=== PATIENT | male | born 1995 | race Caucasian/White ===

== ENCOUNTER 2023-01-21 05:50 | Emergency (ER) | payer SELFPAY ==
[2023-01-21] MEDS ORDERED: DIPHTH,PERTUSS(ACELL),TET 0.5 ML DISP.SYRIN IM ONE ×2 (05:53→06:06)
[2023-01-21] MEDS ORDERED: LIDOCAINE HCL 1%, 10 MG/ML (20ML VIAL) ONE (05:59)
[2023-01-21 06:04] VITALS: BP 148/88; PULSE 107; RESP 20; TEMP 99.2; BMI 23.7
[2023-01-21] MEDS ORDERED: AMOX TR/POT CLAV 875MG/125MG TABLETS (FP) PO ONE (06:35)
[2023-01-21] MEDS ORDERED: AMOX TR/POT CLAV 875MG/125MG TABLETS (FP) ONE (06:37)
== END 2023-01-21 06:51 | disposition home or self-care (01) ==
LOC: FER 05:50
PROC: 0HQHXZZ Repair Right Upper Leg Skin, External Approach (ICD-10-PCS; principal; 2023-01-21)
PROC: 3E0234Z Introduction of Serum, Toxoid and Vaccine into Muscle, Percutaneous Approach (ICD-10-PCS; 2023-01-21)
DX: S71.111A Laceration without foreign body, right thigh, initial encounter (principal); W26.8XXA Contact with other sharp object(s), not elsewhere classified, initial encounter; Y93.39 Activity, other involving climbing, rappelling and jumping off
CPT/HCPCS: 90715; 99284-25